=== PATIENT | male | born 1965 | race American Indian/Alaskan Native ===

== ENCOUNTER 2019-11-18 14:51 | Emergency (ER) | payer SELFPAY ==
--- NOTE | 2019-11-18 15:18 | Event Note ---
ED Screening Note ED Screening Note: 54 yo male who presents with headache and possible hx of HTN. arrived per ems This initial assessment/diagnostic orders/clinical plan/treatment(s) is/are subject to change based on patients health status, clinical progression and re- assessment by fellow clinical providers in the ED. Further treatment and workup at subsequent clinical providers discretion. Patient/guardian urged not to elope from the ED as their condition may be serious if not clinically assessed and managed. Initial orders include: cbc bmp
[2019-11-18 16:16] LABS: Hematocrit 48.2 % (35.5-45.6); Hemoglobin 16.2 gm/dl (11.8-15.2); Mean Corpuscular HGB Conc 34 % (32-34); Mean Corpuscular Volume 87 fl (84-94); Platelet Count 184 K/mm3 (140-440); Red Blood Count 5.54 M/mm3 (3.65-5.03); Red Cell Distribution Width 15.2 % (13.2-15.2)
[2019-11-18 16:40] LABS: Alanine Aminotransferase 17 units/L (7-56); Albumin 4.8 g/dL (3.9-5); BUN/Creatinine Ratio 8; Blood Urea Nitrogen 6 mg/dL (9-20); Hemolysis Index 22
[2019-11-18] MEDS ORDERED: IBUPROFEN 800 MG TAB PO ONE (17:15)
[2019-11-18] MEDS ORDERED: cloNIDine 0.1 MG TAB PO ONE (17:15)
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
[2019-11-18 17:31] VITALS: BP 174/104
== END 2019-11-18 19:00 | disposition home or self-care (01) ==
LOC: ED 14:51
DX: I10 Essential (primary) hypertension (principal); F17.200 Nicotine dependence, unspecified, uncomplicated; Z91.14 Patient's other noncompliance with medication regimen; Z79.899 Other long term (current) drug therapy
CPT/HCPCS: 36415; 80053; 85027